=== PATIENT | male | born 2000 | race Caucasian/White ===

== ENCOUNTER 2020-08-10 08:21 | Emergency (ER) | payer SELFPAY ==
[2020-08-10] MEDS ORDERED: LORazepam 1 MG Tab PO ONE (09:09)
--- NOTE | 2020-08-10 09:11 | EDM.PDOC ---
ED HPI GENERAL MEDICAL PROBLEM - General Time Seen by Provider: 08/10/20 08:55 Source of Information: Reports: Patient History Limitations: Reports: No Limitations - History of Present Illness INITIAL COMMENTS - FREE TEXT/NARRATIVE: Patient comes emergency department today plaints of chest tightness. This patient has had chest tightness increasing over the past days. He is really not overtly short of breath but he does become somewhat anxious at times with a tightness in his chest. The pain does not radiate anywhere. He has had no fever or chills. No cough or congestion. No abdominal pain nausea or vomiting. No weakness dizziness lightheadedness. No palpitations. He has had no hematuria dysuria or urinary frequency. No black or tarry stools. He has had no fever chills cough or congestion. He does struggle with some anxiety and depression. He is a 19-year-old male who does not have a job nor does he leave the house on the regular basis. He leaves the house about once every month or so. He gets very anxious and nervous out in the public eye. He primarily plays video games and chats with a large amount of friends on the Internet which she has never met personally. He has had some suicidal thoughts in the past about killing himself because he is so anxious and depressed about his living situation. He has never made an attempt to kill himself. He is not actively suicidal at this time nor does he have a plan to harm himself. He has never taken any medications or any other steps in an attempt to kill himself. He denies any recreational drug use or alcohol usage. He lives at home with his father in the town [facility]. Patient did not graduate from high school nor does he attend any secondary education. Chest Pain Score (Numeric/FACES): 4 - Related Data Allergies Allergy/AdvReac Type Severity Reaction Status Date / Time No Known Allergies Allergy Verified 08/10/20 13:43 Home Meds: Home Meds . [No Known Home Meds] 07/03/14 [History] Past Medical History - Past Health History Medical/Surgical History: Denies Medical/Surgical History ED ROS GENERAL - Review of Systems Review Of Systems: Comprehensive ROS is negative, except as noted in HPI. ED EXAM, GENERAL - Physical Exam Exam: See Below Exam Limited By: No Limitations General Appearance: Alert, WD/WN, Thin Eye Exam: Bilateral Eye: EOMI Ears: Normal External Exam Nose: Normal Inspection Throat/Mouth: Normal Inspection Head: Atraumatic, Normocephalic Neck: Normal Inspection Respiratory/Chest: No Respiratory Distress, Lungs Clear, Normal Breath Sounds, Chest Non-Tender Cardiovascular: Normal Peripheral Pulses, Regular Rate, Rhythm GI/Abdominal: Normal Bowel Sounds, Soft (Male) Exam: Deferred Rectal (Males) Exam: Deferred Back Exam: Normal Inspection, Full Range of Motion Extremities: Normal Inspection, Normal Range of Motion, Non-Tender, No Pedal Edema, Normal Capillary Refill Neurological: Alert, Oriented, Normal Cognition, No Motor/Sensory Deficits Psychiatric: Depressed Mood, Flat Affect, Other (The patient has absolutely no eye contact. He looks down at the ground during his complete HPI ROS and physical exam. He has a very monotone voice no inflections of speech. He speaks quietly softly and slowly. He answers very minimally with any questions he does not embellish or expand on any questions even when directly asked. He is constantly fidgeting or playing with his fingers and ticking. He makes almost no other physical movements of his legs or his arms.) Skin Exam: Warm, Dry, Intact #1 Interpretation EKG Date: 08/11/20 Time: 08:34 Rhythm: NSR Rate (Beats/Min): 76 Hilger: Normal P-Wave: Present QRS: Normal ST-T: Normal QT: Normal Comparison: NA - No Prior EKG Course - Vital Signs Last Recorded V/S: Last Vital Signs Temp 100.3 F 08/10/20 08:25 Pulse 91 08/10/20 11:24 Resp 16 08/10/20 11:24 BP 119/67 08/10/20 11:24 Pulse Ox 99 08/10/20 11:24 - Orders/Labs/Meds Labs: Laboratory Tests 08/10/20 08/10/20 Range/Units 09:20 09:20 WBC 5.7 (4.0-10.0) x10^3/uL RBC 5.07 (4.5-6.0) x10^6/uL Hgb 16.0 D (14.0-18.0) g/dL Hct 46.0 (40.0-52.0) % MCV 90.7 (78.0-93.0) fL MCH 31.6 (26.0-32.0) pg MCHC 34.8 (32.0-36.0) g/dL RDW Coeff of Chintan 11.7 (10.0-15.0) % Plt Count 209 D (130-400) x10^3/uL Neut % (Auto) 60.5 (50.0-80.0) % Lymph % (Auto) 28.5 (25.0-50.0) % [place] % (Auto) 9.9 (2.0-11.0) % Eos % (Auto) 0.9 (0.0-4.0) % Baso % (Auto) 0.2 (0.2-1.2) % Sodium 139 (136-145) mmol/L Potassium 4.3 (3.5-5.1) mmol/L Chloride 103 (98-107) mmol/L Carbon Dioxide 25 (21-32) mmol/L Anion Gap 15.3 (10-20) mmol/L BUN 11 (7-18) mg/dL Creatinine 0.9 (0.70-1.30) mg/dL Est Cr Clr Drug Dosing TNP Estimated GFR (MDRD) > 60 Glucose 76 (74-106) mg/dL Calcium 9.4 (8.5-10.1) mg/dL Corrected Calcium 8.84 (8.5-10.1) mg/dL Total Bilirubin 1.0 (0.2-1.0) mg/dL AST 19 (15-37) U/L ALT 28 (16-63) U/L Alkaline Phosphatase 77 (46-116) U/L Troponin I < 0.017 (<=0.056) ng/mL Total Protein 8.2 (6.4-8.2) g/dL Albumin 4.7 (3.4-5.0) g/dL Globulin 3.5 Albumin/Globulin Ratio 1.34 TSH, Ultra Sensitive 1.162 (0.516-4.13) uIU/mL Ethyl Alcohol < 3 (0-3) mg/dL Meds: Medications Discontinued Medications Generic Name Dose Route Start Last Admin Trade Name Freq PRN Reason Stop Dose Admin Lorazepam 1 mg 08/10/20 09:09 08/10/20 09:21 Ativan PO 08/10/20 09:10 1 mg ONETIME ONE Administration - Re-Assessments/Exams Free Text/Narrative Re-Assessment/Exam: Initial EKG shows a normal sinus rhythm without any ST elevation or depression when reviewed extemporaneously by myself. 1 mg Ativan sublingually. Laboratory evaluation is completely unremarkable with a negative troponin as well as a negative alcohol. His TSH is also unremarkable as well. I really feel with his psychiatric evaluation and is my concern of his emotional state that most likely that this chest tightness is related to a very depressive type almost [place] phobic type mood. He is attempting to try to get his drivers license so he can meet his girlfriend that he has been talking to online and is becoming quite anxious about leaving his house from his parents which she is really never done. I have some concerns for a major depressive or other type of disorder. He has had suicidal thoughts and ideation in the past although he is not actively suicidal as he have any plan to harm himself. I did talked at length with the patient as well as his father about my concerns of his mental's situation. I spoke with the people at the [facility] to have him be evaluated. Due to my concerns of his mental health. The assessment team at the [facility] is quite busy today and will not be able to get back for quite some hours. The patient would like to go home but does promise as well as his father that he will follow up with the [facility]. I am unsure of what is causing his chest pain but I think it is most likely related to his mental illness. It is not cardiac related. I do not want him to be started on any medication at this time until he can be evaluated by the mental health society. He is comfortable with this plan and his questions are answered. The patient does contract for safety while he is in the emergency department. The information in the contact phone number was given to the patient to follow-up with the [facility]. He and his father are comfortable with this plan and their questions are answered. Departure - Departure Time of Disposition: 11:40 Disposition: Home, Self-Care 01 Clinical Impression: Non-cardiac chest pain Depression Qualifiers: Depression Type: unspecified Qualified Code(s): F32.9 - Major depressive disorder, single episode, unspecified Instructions: Suicidal Feelings: How to Help Yourself, Nonspecific Chest Pain, Adult, [id number] Referrals: Eliud Ramirez PA-C [Primary Care Provider] - Forms: ED Department Discharge Additional Instructions: Follow up with [facility] today at [phone] for follow up. They are awaiting your call. Contract for safety. If at anytime you feel like harming yourself you will contact 911 and come immediately to the ED or contact the crisis line at [phone]. Return to the ED if new or worsening symptoms. Follow up with PCP in the next 4-6 days if not improving sooner if worse.
[2020-08-10 10:09] LABS: CHLORIDE,CL 103 mmol/L (98-107); SODIUM,NA 139 mmol/L (136-145)
[2020-08-10 10:11] LABS: ANION GAP 15.3 mmol/L (10-20)
== END 2020-08-10 11:50 | disposition home or self-care (01) ==
LOC: VM.ED 08:21
DX: R07.89 Other chest pain (principal); F32.9 Major depressive disorder, single episode, unspecified
CPT/HCPCS: 36415; 80053; 80307; 84443; 84484; 85025; 93005; 99285; A9270; 93010; 99284